=== PATIENT | female | born 1960 | race Caucasian/White ===

== ENCOUNTER 2025-08-26 09:00 | Outpatient (AMB) | payer OTHER, SELFPAY ==
--- NOTE | 2025-08-26 09:11 | A.OFFPC_ITS ---
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 City Plant Supervisor Required: No City Plant Supervisor Name: Doctor speaks english Accompanied by: Spouse Allergies peanut (PEANUT) Allergy (Mild, Unverified 08/26/25 09:15) HIVES Medication List - Last Reconciled 08/26/25 by Brian Chapman MD No Known Home Meds Tobacco use date assessed: 08/26/25 Fall risk assessment: 1 Fall in past year Last assessed Fall Risk: 08/26/25 Dental Screening Dental Screen Date: 08/26/25 Did you have a dental visit in the last 12 months?: No Did you have a dental problem in the last 6 months where you did not have access to dental care?: No Was dental information given to patient?: No HPI HPI Comments History of Present Illness Details History of Present Illness The patient is a 65 year old female presenting for a new patient visit to establish primary care. Health Maintenance: The patient is establishing care as she does not have a primary care physician and has not had routine blood work in a long time. She has never had a mammogram, colonoscopy, Pap smear, or bone density scan. Left Leg Pain: The patient reports an acute onset of left leg pain that occurred the day prior while assisting another person. She felt a tear in her leg and now has some difficulty walking. She has taken Tylenol for the pain. Neurological History: The patient reports a history of seizures, for which she previously took medication but is not currently on any treatment. She also reports occasional problems with her memory but is able to live independently and perform activities of daily living, such as bathing and cooking. Asthma: The patient has a history of asthma and uses an albuterol inhaler. Surgical History: The patient denies any prior surgical history. Medications: - Albuterol inhaler for asthma - Tylenol as needed for pain, taken rece ntly for leg pain - Reports using a cream for a skin condi tion Social History: - Substance Use: The patient denies a hi story of smoking or illicit drug use. - Employment: She is not currently worki ng and stays at home. - Functional Status: The patient is inde pendent with her activities of daily living, including bathing and cooking. - Family Status: The patient has had 7 c hildren via normal vaginal delivery and one miscarriage. Family History: No family history was discussed. Diagnostic Results: No prior diagnostic results were discussed during the visit. Past Medical History - Seizures - Asthma - Menopause - Denies prior hospitalizations. Health Maintenance - A comprehensive panel of blood tests h as been ordered, including a CBC, CMP, TSH, HbA1c, vitamin B12, folate, vitamin D, and screening for hepatitis B, C, and HIV. - An order for a stool-based colorectal cancer screening test will be placed, per the patient's preference. - An order for a mammogram will be place d for the patient to consider, although she is currently hesitant. - A bone density scan is recommended to screen for osteoporosis. - The need for cervical cancer screening with a Pap smear was discussed. - A follow-up appointment is scheduled i n two weeks to review the results of the diagnostic tests. [facility] Medical History (Updated 08/26/25 @ 09:52 by Brian Chapman MD) Memory impairment History of fall Muscle strain Onychomycosis Arthritis Asthma Surgical History (Updated 08/26/25 @ 09:17 by Talha Palacios CMA) No pertinent past surgical history Social History (Updated 08/26/25 @ 09:18 by Talha Palacios CMA) Housing: Apartment Alcohol intake: never Patient Tobacco Use Status: Never used Tobacco e-Cigarette/Vaping Use: Never Used service: No Current occupational status: disabled Current occupational exposures/hazards: No Cognitive needs: No Hearing needs: No Vision needs: Yes Questionnaire PHQ-9 Over the last 2 weeks, how often have you been bothered by any of the following problems? 1. Little interest or pleasure in doing things: several days 2. Feeling down, depressed, or hopeless: not at all 3. Trouble falling or staying asleep, or sleeping too much: not at all 4. Feeling tired or having little energy: not at all 5. Poor appetite or overeating: not at all 6. Feeling bad about yourself - or that you are a failure or have let yourself or your family down: not at all 7. Trouble concentrating on things, such as reading the newspaper or watching television: not at all 8. Moving or speaking so slowly that other people could have noticed. Or the opposite - being so fidgety or restless that you have been moving around a lot more than usual: not at all 9. Thoughts that you would be better off or of hurting yourself in some way: not at all Total score: 1 Depression Screening Interpretation: Negative Depression Screening Done: Yes 43251 - PHQ-9 Billing: Yes Source: Developed by Drs. Dez Cortes, Petra Mercedes, Shun Scruggs and colleagues, with an educational randall from [employer]. Thrive Questionnaire Date Thrive assessed: 08/26/25 I am a: Patient What is your living situation today?: I have a steady place to live Within the past 12 months, did the food you bought not last and you didn't have the money to get more?: Often true Within the past 12 months, did you worry whether your food would run out before you got money to buy more?: Often true Do you have trouble paying for medicines?: Yes Do you have trouble getting transportation to medical appointments?: No Do you have trouble paying your heating and electricity bill?: Yes Do you have trouble taking care of your child, family member or friend?: No Are you currently unemployed and looking for a job?: Yes Are you interested in more education?: No Please select the resources that you would like help with: Food Currently or been in a relationship where the following occur: No concerns reported THRIVE Score: 3 AUDIT C Alcohol Use Questionnaire (AUDIT-C) 1. How often do you have a drink containing alcohol?: Never Total Score: 0 EDA-7 AMB Questionnaire EDA-7 Date EDA - 7 assessed: 08/26/25 Feeling nervous, anxious, or on edge: 0 = Not at all Not being able to stop or control worryin = Not at all Worrying too much about different things: 0 = Not at all Trouble relaxin = Not at all Being so restless that it is hard to sit still: 0 = Not at all Becoming easily annoyed or irritable: 0 = Not at all Feeling afraid as if something awful might happen: 0 = Not at all Total EDA-7 score (0-4 normal; 5-9 mild; 10-14 moderate; 15-21 severe): 0 Source: Developed by Drs. Dez Cortes, Petra Mercedes, Shun Scruggs and colleagues, with an educational randall from [employer]. EDA-7 Assessment Billing EDA-7 Assessment Tool: EDA-7 Assessment 39431 Review of Systems Narrative Review of Systems - General: Reports a fall within the last year. - Neurological: Reports a history of seizures and occasional memory problems. - Respiratory: Reports a history of asthma. - Musculoskeletal: Reports acute left leg pain and sometimes has ankle pain. - Gynecologic: Reports she is postmenopausal. - ENT: Denies any past trauma to her ear. - Psychiatric: Reports fear of doctors. 10-point ROS reviewed and negative except as noted in HPI Physical exam (Primary Care) Tobacco/Smoking Status: Tobacco use Status Patient Tobacco Use Status Never used Tobacco 08/26/25 09:18 PHQ-9: PHQ-9 Score PHQ-9: Total score 1 08/26/25 09:13 Depression Screening Interpretation: Negative Currently or been in a relationship where the following occur: No concerns reported Narrative Physical Exam General: Well-appearing, in no acute distress. Vital signs: Within normal limits. HEENT: Normocephalic, atraumatic. PERRLA, EOMI. Conjunctiva clear, sclera anicteric. Oropharynx clear, mucous membranes moist. TMs intact bilaterally. Neck: Supple, no lymphadenopathy, no thyromegaly, no JVD or carotid bruits. Cardiovascular: RRR, normal S1/S2, no murmurs, rubs, or gallops. Peripheral pulses 2+ and symmetric. No edema. Respiratory: Lungs clear to auscultation bilaterally, no wheezes, rales, or rhon chi. Normal effort. Abdomen: Soft, non-tender, non-distended. Normoactive bowel sounds. No hepatosplenomegaly, no masses. MSK: Full range of motion, no joint swelling or deformity. Normal gait. Ecchym osis on the posterior left leg, tender to touch, especially around the calf muscle. Skin: Warm, dry, intact. No rashes, lesions, or pallor. Comucosis or thickening of the right big toenail. Neuro: Alert and oriented x3. Cranial nerves II-XII intact. Strength 5/5 throughout. Sensation intact. Reflexes 2+ symmetric. Normal coordination and gait. Slight tremor in the right hand. Psych: Appropriate mood and affect. Normal judgment and insight. Memory problems noted at times. Coding Level of Care Code New Pt Level 4 (58999) Add On Problem Visit Only Diagnoses Asthma J45.909 Onychomycosis B35.1 Muscle strain T14.8XXA History of fall Z91.81 Memory impairment R41.3 Additional Codes EDA-7 Assessment Billing - EDA-7 Assessment Tool: EDA-7 Assessment 63537 ([id number]) PHQ-9 - 71764 - PHQ-9 Billing: Yes ([id number]) Assessment & Plan Assessment & Plan (1) Asthma: Code(s): J45.909 - Unspecified asthma, uncomplicated Category: Medical (2) Onychomycosis: Code(s): B35.1 - Tinea unguium Category: Medical (3) Muscle strain: Code(s): T14.8XXA - Other injury of unspecified body region, initial encounter Category: Medical (4) History of fall: Code(s): Z91.81 - History of falling Category: Medical (5) Memory impairment: Code(s): R41.3 - Other amnesia Category: Medical Plan Consent The risks, benefits, and alternatives for colorectal cancer screening were discussed. The patient was presented with two options: a colonoscopy, which involves a bowel prep and sedation, and a non-invasive stool-based test that can be completed at home. The patient verbally consented to the stool-based testing. The patient was also counseled on the importance of a mammogram for breast cancer prevention, but she expressed fear and declined the procedure at this time. Patient was informed and verbally consented to the use of an ambient scribe for clinic note documentation during this visit. Plan 1. Onychomycosis, Right Great Toe - A prescription for an antifungal nail lacquer will be sent to the pharmacy. 2. Left Leg Strain - The patient has self-treated with Tylenol. - The condition will be monitored, and no further immediate interventions were planned. 3. Right Hand Tremor And Memory Impairment - These conditions were noted during the visit and will be evaluated further pending the results of the comprehensive lab workup, which includes thyroid function tests and vitamin levels. Discussion Notes I introduced myself to the patient and confirmed she was here to establish primary care. I reviewed the need for age-appropriate health screenings for a 65-year-old female. I explained that a mammogram is used to prevent breast cancer, but she expressed significant fear and has never had one. I offered to place an order for her to think about it. For colorectal cancer screening, I detailed two options: a colonoscopy and a home-based stool test. She elected to proceed with the stool test. I also recommended a bone density scan to check for osteoporosis. I informed her that we would be doing comprehensive blood work to check her overall health, including blood counts, kidney and liver function, thyroid, blood sugar, and vitamin levels. We will follow up in two weeks to review all the results and create a further plan. Patient Instructions - Please go to the lab to have your blood drawn for testing. - You will receive a kit in the mail to test your stool for colon cancer screening; please follow the instructions included and mail it back. - A prescription for an anti-fungal nail romanian will be sent to your pharmacy for your toenail. - Please continue to take Tylenol as needed for your leg pain. - Please consider scheduling a mammogram for breast cancer screening. - Return to the clinic in two weeks to discuss your test results. Medical Decision Making This is a 65-year-old female with a limited history of medical care who presents to establish a primary care relationship. The primary goal of this visit is to perform a comprehensive health assessment and initiate age-appropriate preventative care, as she is overdue for multiple screenings. Given the patient's significant medical anxiety and reluctance towards procedures, a shared decision-making model was employed for cancer screenings. While a mammogram was recommended, her fear was acknowledged, and the decision was deferred. For colorectal cancer screening, a non-invasive stool-based test was chosen as a more acceptable alternative to a colonoscopy. A comprehensive lab panel was ordered to establish a baseline and screen for common comorbidities such as diabetes, thyroid disease, anemia, and vitamin deficiencies, which could contribute to her reported symptoms of memory issues. The patient's acute left leg pain with ecchymosis is consistent with a muscle strain, and conservative management with observation is appropriate at this time. Incidental findings include a right hand tremor, onychomycosis of the right great toe, and a ruptured tympanic membrane. The onychomycosis will be treated topically, while the tremor and ear finding will be reassessed at the 2- week follow-up, pending lab results. Total Time Statement 30 min Total time spent caring for the patient today includes pre-visit chart review, documentation, review of laboratory and diagnostic imaging results, medication reconciliation, medically necessary evaluation, counseling on diagnoses, care coordination, ordering appropriate tests and medications, review of tests performed by other providers, reporting test results to the patient, and communication with other healthcare providers. Orders: Orders Hepatitis B Surface Antigen Today Z13.9 - Encounter for screening, unspecified Comprehensive Met. Panel Today Z13.9 - Encounter for screening, unspecified TSH reflex Free T4 Today Z13.9 - Encounter for screening, unspecified UA CC w/rflx Micro + Cult Today Z13.9 - Encounter for screening, unspecified Lipid Panel Today Z13.9 - Encounter for screening, unspecified Vitamin B12 and Folate Today Z13.9 - Encounter for screening, unspecified Magnesium Today Z13.9 - Encounter for screening, unspecified Hepatitis B Surface Antibody Today Z13.9 - Encounter for screening, unspecified Complete Blood Count Auto Diff Today Z13.9 - Encounter for screening, unspecified Syphilis Screen Today Z13.9 - Encounter for screening, unspecified Hepatitis C Antibody Today Z13.9 - Encounter for screening, unspecified HIV Ab/Ag Today Z13.9 - Encounter for screening, unspecified Hemoglobin A1c Today Z13.9 - Encounter for screening, unspecified Vitamin D 25-OH (D2 and D3) Today Z13.9 - Encounter for screening, unspecified Referrals Cologuard Test Z12.11 - Encounter for screening for malignant neoplasm of colon, Z12.12 - Encounter for screening for malignant neoplasm of rectum Medications: New ciclopirox 8% 1 appl topical BEDTIME 6.6 mL 0RF 4 weeks B35.1 - Tinea unguium albuterol sulfate 90 mcg/actuation (Ventolin HFA) 2 puffs inhalation Q6H PRN 6.7 grams 0RF shortness of breath or wheezing J45.909 - Unspecified asthma, uncomplicated
[2025-08-26 09:18] VITALS: BP 170/71; PULSE 88; RESP 16; TEMP 36.4; O2SAT 100; BMI 31.9
--- OUTSIDE RECORDS SUMMARY | 2025-08-26 09:52 | XMS_ITS | Clinical Summary ---
Author Organization [employer] Address [address] [place] [address] Care Team Providers Care Waste Picker Name Role Phone Unavailable Primary Care Provider Unavailabl e Social History Tobacco Use Types Packs/Day Years Used Date Smoking Tobacco: Never Assessed Comments Unknown Sex and Gender Information Value Date Recorded Sex Assigned at Female 07/10/2022 10:18 AM EDT Legal Sex Female 10:18 AM EDT Gender Identity Female 07/10/2022 10:18 AM EDT Sexual Orientation Choose not to disclose 2021 10:18 AM EDT Plan of Treatment Health Maintenance Due Date Last Done Comments CT Colonography 1960 Colonoscopy 1960 Colorectal Cancer Screening 1960 Depression Screening 1960 FIT DNA/Cologuard 1960 FIT 1960 FOBT 1960 Sigmoidoscopy 1960 Alcohol/Substance Use Screening 1972 Tobacco Screening 1972 Pap Smear 1981 Cervical Cancer Screening 1990 HPV/Cotest 1990 Mammogram 2000 Pneumococcal Vaccine: 50+ Years (1 of 1 - PCV) 2010 Zoster Vaccines (1 of 2) 2010 DTaP/Tdap/Td Vaccines (2 - T d or Tdap) 11/19/2022 11/19/2012 COVID-19 Vaccine (3 - 2024-2 6 season) 2025 05/05/2021, 04/14/2021 Influenza Vaccine (#1) 2025 11/19/2012 RSV Patients and Patients Aged 60 years or older (1 - 1-dose 75+ series) 2035 HIB Vaccines Aged Out No longer eligi ble based on patient's age to complete this topic HPV Vaccines Aged Out No longer eligi ble based on patient's age to complete this topic Hepatitis A Vaccines Aged Out No long er eligible based on patient's age to complete this topic Hepatitis B Vaccines Aged Out No long er eligible based on patient's age to complete this topic IPV Vaccines Aged Out No longer eligi ble based on patient's age to complete this topic Meningococcal B Vaccine Aged Out No l onger eligible based on patient's age to complete this topic Meningococcal Vaccine Aged Out No taina leslee eligible based on patient's age to complete this topic RSV under 20 months Aged Out No longe r eligible based on patient's age to complete this topic Rotavirus Vaccines Aged Out No longer eligible based on patient's age to complete this topic
== END 2025-08-26 09:47 | disposition home or self-care (01) ==
LOC: HO.HMCFMS 09:01
PROVIDERS: Visit Provider Student in an Organized Health Care Education/Training Program
DX: J45.909 Unspecified asthma, uncomplicated (principal); B35.1 Tinea unguium; T14.8XXA Other injury of unspecified body region, initial encounter; Z91.81 History of falling; R41.3 Other amnesia

== ENCOUNTER 2025-08-26 09:00 | Outpatient (REF) | payer OTHER, SELFPAY ==
[2025-08-26 14:15] LABS: Hematocrit 39.3 % (37.0-47.0); Hemoglobin 12.6 g/dl (12.0-16.0); Imm Gran Abs Auto 0.03 X10*3/uL (0.00-0.03); Imm Gran Pct Auto 0.3 % (0.0-0.4); Lymphocytes Absolute Auto 2.1 X10*3/uL (1.2-4.9); MANUAL DIFF FLAG SCAN; Mean Corpuscular HGB Conc 32.1 g/dl (31.0-35.0); Mean Corpuscular Hemoglobin 27.5 pg (27.0-33.0); Mean Corpuscular Volume 85.8 fL (80.0-98.0); NRBC Abs Auto 0.000 X10*3/uL (0.0-0.012); NRBC Pct Auto 0.0 /100WBC (0.0-0.2); PLT CLUMP 1; Red Blood Count 4.58 X10*6/uL (4.20-5.50); SCAN SMEAR FLAG 1
[2025-08-26 14:30] LABS: Appearance Urine Cloudy; Glucose Urine UA 100 mg/dL (Negative); PH 6.5 (5.0-9.0); Specific Gravity - Urine 1.025 (1.005-1.025)
[2025-08-26 15:03] LABS: Alanine Aminotransferase 9 U/L (0-31); Albumin Level 4.4 g/dL (3.5-5.0); Alkaline Phosphatase 123 U/L (39-117); Anion Gap 11 (12-20); Aspartate Amino Transferase 23 U/L (5-31); Blood Urea Nitrogen 15 mg/dL (9-16); Calcium 9.6 mg/dL (8.4-10.2); Carbon Dioxide 29 mmol/L (22-29); Chloride 104 mmol/L (96-108); Cholesterol 229 mg/dL (<200); Estimated Glomerular Filt Rate > 60; HDL Cholesterol 39 mg/dL (>40); Magnesium 2.1 mg/dL (1.6-2.6); Potassium 4.1 mmol/L (3.3-5.1); Sodium 140 mmol/L (135-145); Total Protein 7.7 g/dL (6.5-8.0); Triglycerides 167 mg/dL (<150)
[2025-08-26 15:14] LABS: Hemoglobin A1C 138.0954 umol/L
[2025-08-26 15:17] LABS: Platelet Count 185 X10*3/uL (160-400); White Blood Count 8.6 X10*3/uL (4.8-10.8)
[2025-08-26 16:13] LABS: Folate 11.6 ng/mL (> or = 4.0); Vitamin B12 177 pg/mL (200-900)
[2025-08-27 04:55] LABS: Syphilis Screen Nonreactive (Nonreactive)
[2025-08-27 04:58] LABS: HBS Num1 0.10 mIU/mL (0-7.99); HIV Num 1 0.08 S/CO (0.00-0.99); ~HepC Num1 0.14 S/CO (0.00-0.79); ~Hepatitis B Surface Antibody NONREACTIVE (Nonreactive); ~Hepatitis C Antibody Nonreactive (Nonreactive)
[2025-08-27 13:31] LABS: HBsAGNum1 0.32 S/CO (0.00-0.99); Hepatitis B Surface Antigen Negative (Negative)
[2025-08-30 10:53] LABS: Vitamin D 25-OH, D2 <4 ng/mL; Vitamin D 25-OH, D3 10 ng/mL; Vitamin D 25-OH, Total 10 ng/mL (30-100)
== END 2025-08-26 09:01 | disposition home or self-care (01) ==
LOC: HO.HKASLDS 09:00
PROVIDERS: PCP Student in an Organized Health Care Education/Training Program; Visit Provider Student in an Organized Health Care Education/Training Program
DX: Z13.9 Encounter for screening, unspecified (principal); J45.909 Unspecified asthma, uncomplicated; B35.1 Tinea unguium; Z91.81 History of falling; R41.3 Other amnesia; T14.8XXA Other injury of unspecified body region, initial encounter
CPT/HCPCS: 36415; 80053; 80061; 81003; 82306; 82607; 82746; 83036; 83735; 84443; 85025; 86706; 86780; 86803; 87340; 87389; 96127; 99202